=== PATIENT | female | born 1980 | race African-American/Black ===

== ENCOUNTER 2017-06-30 23:13 | Emergency (ER) | payer MEDICAID ==
[~2017-06-30] VITALS: Ht 162.6 cm; Wt 49.0 kg
[2017-07-01] MEDS ORDERED: ONDANSETRON HCL 4MG/2ML VIAL IV STA (01:08)
[2017-07-01] MEDS ORDERED: SODIUM CHLORIDE 0.9% 1,000 ML IV ONE (01:08)
[2017-07-01 01:28] LABS: BASOPHILS % 0.9 % (0.0-2.0); EOSINOPHILS % 0.4 % (0.0-5.0); HEMATOCRIT. 35.7 % (36.0-48.0); HEMOGLOBIN. 11.8 g/dL (12.0-16.0); MEAN CORPUSCULAR HEMOGLOBIN 29.6 pg (28.0-32.0); MEAN CORPUSCULAR VOLUME 89.9 fL (81.0-99.0); MEAN PLATELET VOLUME 8.1 fl (7.4-10.4); MONOCYTES % 10.2 % (2.0-8.0); NEUTROPHILS % 66.5 % (40.0-76.0); PLATELET 231 x1000/uL (130-400); RED BLOOD CELL COUNT 3.98 mill/uL (4.2-5.4)
[2017-07-01 01:35] LABS: HCG SCREEN NEGATIVE; INR 1.2
[2017-07-01 01:42] LABS: CHLORIDE 110 mEq/L (98-107)
[2017-07-01] MEDS ORDERED: KETOROLAC 30MG/ML VIAL IV ONE (01:45)
[2017-07-01 01:51] LABS: CARBON DIOXIDE 25 mEq/L (21-32)
[2017-07-01 03:00] VITALS: BP 101/43
== END 2017-07-01 03:00 | disposition home or self-care (01) ==
LOC: ER 23:13
DX: A08.4 Viral intestinal infection, unspecified (principal)
CPT/HCPCS: 36415; 80053; 84703; 85025; 85610; 96361; 96374; 96375; 99284; J1885; J2405; J7030